=== PATIENT | female | born 1990 | race Two or more races ===

== ENCOUNTER 2024-07-17 09:20 | Day surgery (SDC) | payer MEDICAID, SELFPAY ==
[2024-07-11 08:51] VITALS: BMI 30.2
[2024-07-11 10:58] LABS: Anion Gap 7 (7-16); BUN/Creatinine Ratio 19 Ratio (12-20); Blood Urea Nitrogen 13 mg/dL (9-23); Calcium 9.3 mg/dL (8.3-10.6); Chloride 107 mMol/L (98-107); Creatinine (Component) 0.7 mg/dL (0.6-1.3); Estimated Creatinine Clearance 110.6 mL/min (>60); Glucose 94 mg/dL (74-106); Osmolality,Calculated 281 (275-295); Potassium 3.9 mMol/L (3.4-5.1); Sodium 141 mMol/L (136-145); eGFR > 60 See Note
[2024-07-11 10:59] LABS: HCG,Qualitative Serum Negative
[2024-07-11 11:04] LABS: Basophils % (Auto) 1 % (0-2.5); Eosinophils # (Auto) 0.2 Thou/mm3 (0.0-0.5); Eosinophils % (Auto) 3 % (0-10); Hematocrit 42.5 % (36.0-46.0); Hemoglobin 14.3 g/dL (12.0-16.0); Immature Granulocytes % (Auto) 0 % (0-0); Immature Granulocytes Auto 0.02 Thou/mm3 (0.00-0.00); Lymphocytes # (Auto) 1.5 Thou/mm3 (1.0-4.8); Lymphocytes % (Auto) 25 % (10-50); Mean Corpuscular HGB Conc 33.6 g/dl (31.0-37.0); Mean Corpuscular Volume 89 fL (80-100); Monocytes # (Auto) 0.4 Thou/mm3 (0.0-0.8); Monocytes % (Auto) 7 % (0-12); Neutrophils # (Auto) 3.7 Thou/mm3 (1.8-7.7); Neutrophils % (Auto) 63 % (37-80); Nucleated Red Blood Cell % 0 /100 WBC (0); Platelet Count 293 Thou/mm3 (140-440); RDW Standard Deviation 41.5 fL (36.4-46.3); Red Blood Count 4.77 Miln/mm3 (4.00-5.20); White Blood Count 5.9 Thou/mm3 (3.6-11.0)
--- NOTE | 2024-07-16 14:10 | SUR.PREOP ---
Pt notified to come in at 1015 tomorrow for surgery.
[2024-07-17] VITALS (8 sets, daily range): BP systolic 116–156; BP diastolic 73–98; PULSE 62–84; RESP 16–20; TEMP 36.6–36.9; O2SAT 98–99; BMI 30.1
--- NOTE | 2024-07-17 12:25 | SUR.PHASEI ---
1224 Patient arrived to recovery resting comfortably in [facility], drowsy and able to arouse with verbal prompting, breahting unlabored, vital signs stable, denies pain and nausea, dressing intact to right shoulder; dermabond, telfa, fluffs, medipore tape, no bleeding noted, report received from Dr. Fong and Rebecca REYES/Clari REYES
--- NOTE | 2024-07-17 12:28 | PD.SUROPNT ---
Date of Procedure 07/17/24 Pre Op Diagnosis Right shoulder soft tissue mass Post Op Diagnosis Right shoulder subcutaneous soft tissue mass Procedure Excision of large subcutaneous soft tissue mass from right shoulder Findings An approximately 10 cm subcutaneous soft tissue mass on the anterior surface of right shoulder Procedure Description Patient brought into the operating room in supine position. After administration of general endotracheal anesthesia, patient was placed in left lateral decubitus position. Right shoulder was prepped and draped in standard surgical manner. After administration of local anesthesia an approximately 10 cm elliptical incision was made and dissection was deepened into soft tissue. The underlying subcutaneous soft tissue mass was circumferentially dissected out surrounding tissue and excised. The mass was measuring to be approximately 10 cm diameter, lipomatous in nature. The wound was washed and irrigated and hemostasis achieved using electrocautery. Subcutaneous tissue closed with interrupted sutures using 2-0 Vicryl and incision was closed with 4-0 Monocryl in subcuticular fashion. Dermabond applied. Pressure dressings placed. Patient tolerated procedure well. She was placed in supine position and extubated. She was breathing spontaneously and without difficulty and was transferred to postanesthesia care in stable condition. Instruments, needles and sponge counts were reported to be correct x 2. Anesthesia GETA and local Pathology / specimen Other (Right shoulder soft tissue mass) Estimated Blood Loss 2 Condition Stable Disposition PACU Surgeon Gonzales Medeiros MD Surgical Staff Operation Date: 07/17/24 12:30 Case Staff Anesthesiologist: Trever Fong RNophthalmology surgical technician: Nati Nassar
[2024-07-17] MEDS: fentaNYL CIT INJ 50 mCg/ML AMP 2ML IV (13:13)
--- NOTE | 2024-07-17 13:35 | SUR.PHASEII ---
[id number] Patient meets discharge criteria from recovery, awake and alert, breathing unlabored, vital signs stable, dressing intact; no bleeding noted-arm sling provided for support, per patient her pain is tolerable, patient assisted with dressing into her clothing by her daughter and friend, discharge instructions given to patient and her daughter with the assistance of the telephone superintendent plant protection Diego ID#[id number], patients daughter signed discharge instructions. Patient given all her belongings prior to discharge, transported via wheelchair and left in a private vehicle.
== END 2024-07-17 13:35 | disposition home or self-care (01) ==
PROVIDERS: PCP Family Medicine; Referring Provider Surgery; Visit Provider Surgery
PROC: (CPT 23071; principal; 2024-07-17 12:15)
DX: D17.21 Benign lipomatous neoplasm of skin and subcutaneous tissue of right arm (principal)
CPT/HCPCS: 23071; 36415; 80048; 84703; 85025; A4217; A4649; J0690; J1100; J2704; J2765; J3010; J3490

== ENCOUNTER 2024-08-17 16:15 | Inpatient (IN) | payer MEDICAID, SELFPAY ==
--- NOTE | 2024-08-17 16:32 | PC.NURSE ---
pt to ct
--- NOTE | 2024-08-17 16:34 | PC.NURSE ---
Pt GCS 15. Pt stated shew woke up with headache at approx 7am. Pt began feeling numbness and tingling to her mouth at approx 9am. Pt stated that at approx 3pm, she had begun to feel numbness and tingling to right side with weakness to her right hand and leg. pt is primarily Armenian speaking only. and bedside mobile application developer was used. Stroke alert was called while in triage. Pt was placed on stretcher with 2 RNS, mill labor supervisor, and tele-neuro. CT was performed with and without IV contrast. NIH stroke eval was performed by Tele-Neuro while in CT. Pt was then escorted via Stretcher to ER Room 3. Pt was placed on a timber surveyor and updated vitals were taken. Pt c/o a moderated BROOKS at this time 6/10 and pain is described as a throbbing pain. No other complaints or problems at this time.
--- NOTE | 2024-08-17 16:39 | PD.EDNEURO ---
Neuro Symptoms Deficit-RME/HPI General Chief Complaint: Weakness Stated Complaint: Right sided weakness and chest pressure Time Seen by Provider: 08/17/24 16:22 Arrival date/time: 08/17/24 16:15 Limitations: no limitations RME / HPI RME / HPI Narrative: 34 year old female with a history of anxiety presents to the ED as a stroke alert, referred by her primary care provider. The patient reports that at approximately 3:00 PM today, she began experiencing numbness and tingling around her mouth. States she drank coffee, which she normally does not drink, and about one hour later after she developed right-sided numbness and tingling involving both the upper and lower extremities. Accompanied by subjective weakness on the right side. She denies any prior episodes of similar symptoms. She also denies associated speech difficulty, visual changes, memory issues, or headache. In addition, the patient reports intermittent sharp, stabbing chest pain described as occurring ?in my heart? over the past three days. Pain is non-radiating and has not been associated with exertion or other specific triggers. Related Data Previous Rx's ?Medication ?Instructions ?Recorded docusate sodium 100 mg capsule 100 mg PO BID #20 caps 07/17/24 (Colace) hydrocodone 5 mg-acetaminophen 325 1 tab PO Q6H PRN pain (scale score 07/17/24 mg tablet 7-10) #10 tabs ibuprofen 600 mg tablet 600 mg PO Q8H PRN pain (scale 07/17/24 score 4-6) #15 tabs Allergies Allergy/AdvReac Type Severity Reaction Status Date / Time No Known Allergies Allergy Verified 08/17/24 16:19 Review of Systems Review of Systems Narrative Review of Systems: GEN: No fever, no chills, no weight loss EYES: No discharge, no visual changes, no pain HEENT: No ear pain, no congestion, no sore throat PULM: No shortness of breath, no cough, no congestion CV: No chest pain, no dyspnea on exertion, no palpitations GI: No nausea, no vomiting, no diarrhea, no pain, no constipation : No frequency, no urgency, no dysuria MUSC/SKEL: No joint pain, no back pain SKIN: No rash NEURO: +right upper and lower extremity weakness/numbness/tingling, no headache Past Medical History Past Medical History REPRODUCTIVE: Positive Previous Pregnancies OTHER HISTORY: Positive Blood Transfusions and Measles Family History FAMILY HISTORY: Positive Family Surgery; Negative Family Psychiatric Problems, Family Respiratory Disorders, Family Cardiac Disorders, Family Gastrointestinal Problems, Family Cancer or Family Anesthesia Reaction Surgical History SURGICAL: Negative Endocrine Surgery, Ear Surgery or Abdominal Surgery Social History SMOKING STATUS: Never smoker SECOND HAND EXPOSURE: No ED Exam General Limitations: Present no limitations General appearance: Present alert and in no apparent distress Head Head exam: Present atraumatic, normocephalic and normal inspection Eye Eye exam: Present normal appearance, PERRL and EOMI ENT ENT exam: Present normal exam, normal oropharynx and mucous membranes moist Neck Neck exam: Present normal inspection, full ROM and trachea midline Chest Chest inspection: Present normal inspection and symmetric chest wall rise Respiratory Respiratory exam: Present normal lung sounds bilaterally Cardiovascular Cardiovascular exam: Present regular rate, normal rhythm and normal heart sounds Abdominal Exam Abdominal exam: Present soft and normal bowel sounds Extremities Exam Extremities exam: Present normal inspection and full ROM Back Exam Back exam: Present normal inspection and full ROM Neurological Exam Neurological exam: Present alert, oriented X3, CN II-XII intact and other (manager relocation strength on right upper extremity 4/5. ) Psychiatric Psychiatric exam: Present normal affect and normal mood Skin Skin exam: Present warm, dry, intact and normal color Course Quality Measures Suspected type of Stroke: Non Acute Last known well (date): 08/17/24 Last known well (time): 15:00 Tenecteplase given: Reason(s) TPA not given: Stroke severity too mild (non-disabling) not given stroke Orders Category Date Time Status Bedside Blood Glucose NOW Care 08/17/24 16:40 Completed COVID-19 Screening Questionnaire NOW Care 08/17/24 17:[address] Screening NOW Care 08/17/24 16:49 Completed Garbage Truck Driver NOW Care 08/17/24 16:40 Active Continuous Pulse Oximetry NOW Care 08/17/24 16:40 Completed Decision to Admit X1 Care 08/17/24 17:58 Completed EKG (ED ONLY) *Do not use* NOW Care 08/17/24 16:40 Completed In and Out Catheter NEEDED Care 08/17/24 16:40 Active Insert IV NOW Care 08/17/24 16:40 Active NIH Stroke Scale now Care 08/17/24 16:40 Active NPO NOW Care 08/17/24 16:40 Active Neuro Check Q15MIN Care 08/17/24 16:40 Active Nurse Swallow Screen x1 Care 08/17/24 16:40 Active Consult to Neurology / Tele-Neurology Routine Cons 08/17/24 16:[address] angio stroke protocol Stat Exams 08/17/24 16:[address] stroke protocol Stat Exams 08/17/24 16:40 Completed EKG (ED Only) Stat Exams 08/17/24 16:40 Draft Alcohol, Blood Medical Stat Lab 08/17/24 16:32 Completed CBC Stat Lab 08/17/24 16:32 Completed Comprehensive Metabolic Panel Stat Lab 08/17/24 16:32 Completed Drug Screen,Urine Stat Lab 08/17/24 17:42 Completed Magnesium Stat Lab 08/17/24 16:32 Completed Partial Thromboplastin Time Stat Lab 08/17/24 16:32 Completed Prothrombin Time with INR Stat Lab 08/17/24 16:32 Completed Troponin I Stat Lab 08/17/24 16:32 Completed Urinalysis Stat Lab 08/17/24 17:42 Completed Urine Culture Stat Lab 08/17/24 17:42 Received Aspirin [Ecotrin] Med 08/17/24 17:58 Discontinued 81 mg PO X1 ONE Clopidogrel [Plavix] Med 08/17/24 17:58 Discontinued 300 mg PO X1 ONE Ondansetron Inj [Zofran Inj] Med 08/17/24 16:39 Active 4 mg IV Q4HR PRN Sodium Chloride 0.9% 1000 ml [Ns] 1,000 ml Med 08/17/24 16:45 Active IV Q10H Vital Signs Vital signs: Vital Signs Temperature 98.4 F 08/17/24 17:11 Pulse Rate 78 08/17/24 17:11 Respiratory Rate 14 08/17/24 17:11 Oxygen Delivery Method Room Air 08/17/24 17:11 Neuro Symptoms / Deficit MDM Narrative MDM Narrative:: Ryann Daily am scribing for and in the presence of Dr. Rosario. 1624: I evaluated patient in old triage 1627: Stroke alert activated Patient data External records reviewed:: [facility] previous records (I reviewed ED Visit on 04/01/2019 ) Clinical information provided by:: patient Social determinants that could affect healthcare access:: mental health Patient has the following chronic illnesses:: Anxiety How is presenting disease/condition affected by chronic disease/condition?: exacerbated by Evaluation data The following diagnostics were reviewed and interpreted by me:: lab results, radiology exam(s) and EKG tracing(s) (EKG @ 17:22. Sinus rhythm, rate 69, no STEMI. ) Lab and/or radiology exams considered but not ordered:: None Interpretation Summary: Ordering Physician: Messi Rosario MD Date of Service: 08/17/24 Procedure(s): CT stroke protocol Accession Number(s): [id number] cc: Messi Rosario MD; Kody Miranda MD~ Examination: CT brain head without contrast. 2-D sagittal coronal reconstructions Date and time of exam:August 17, 2024 1636 hours Comparison July 24, 2014 INDICATION: Stroke alert, onset chest pain and right-sided body weakness beginning 9:00 AM this morning CTDI: vol (mGy):46.9 DLP: (mGycm):954 Technique: Multiple CT axial sections of the brain have been obtained, 5 mm slice thickness. Contrast has not been administered. 2-D sagittal, coronal reconstructions have been obtained Low dose protocols were performed. One or more of the following dose reduction techniques were used; automated exposure control, adjustment of the mA and/or KV according to patient size, use of iterative reconstruction technique. Findings: No significant ventricular enlargement. Intra-axial or extra-axial hemorrhage density is not seen. No mass effect or midline shift Basal cisterns are not remarkable. Fourth ventricle is midline. Cranial vault intact. Impression: Negative for acute hemorrhage, mass effect or midline shift Dictated By: Kody Miranda MD Signed By: <Electronically signed by Kody Miranda MD in OV> 08/17/24 1647 Ordering Physician: Messi Rosario MD Date of Service: 08/17/24 Procedure(s): CT angio stroke protocol Accession Number(s): [id number] cc: Messi Rosario MD; Kody Miranda MD~ Examination: CTA carotids with intravenous contrast CTA brain, head with intravenous contrast. 2-D sagittal, coronal reconstructions. 3-D reconstructions. Exam date and time: August 17, 2024 1650 hours INDICATIONS: Stroke alert, onset right-sided body weakness and chest pain beginning 9:00 AM this morning CTDI: vol (mGy) 32 DLP: (mGycm) 458 Technique: Multiple CTA axial brain, head carotid images post intravenous contrast injection 75 cc, [id number]. 2-D sagittal, coronal reconstructions. 3-D reconstructions, 3-D post processing including vascular maximum intensity projection images. Low dose protocols were performed. One or more of the following dose reduction techniques were used; automated exposure control, adjustment of the mA and/or KV according to patient size, use of iterative reconstruction technique. Findings: No common carotid carotid bifurcation or internal carotid artery stenoses Mildly dominant left vertebral artery with no critical stenoses Intracranial vertebral arteries basilar artery and posterior cerebral branches fill with no large vessel occlusions Petrous juxtasellar portions internal carotid arteries, M1 segment spell cerebral arteries middle cerebral artery trifurcation vessels as well as anterior cerebral vessels demonstrate no large vessel occlusions IMPRESSION: No significant neck arterial stenoses No cerebral special arterial occlusions or thrombus Brain MRI MRA without contrast follow up, stroke protocol would best assess for demyelinating disease, acute ischemic change Dictated By: Kody Miranda MD Signed By: <Electronically signed by Kody Miranda MD in OV> 08/17/24 1526 Medications / Prescriptions Medications or Prescriptions considered but not ordered:: None Medication administrations:: Medication Administration History Acetaminophen (Acetaminophen 325 Mg Tablet) 650 mg PO Q6H PRN PRN Reason: Fever >101.5 Stop: 09/16/24 18:43 Acetaminophen (Acetaminophen 325 Mg Tablet) 650 mg PO Q6H PRN PRN Reason: PAIN SCALE 1-3 (mild Stop: 09/16/24 18:43 Aspirin (Aspirin Ec 81 Mg Tabec) 81 mg PO QDAY ADAM Stop: 09/17/24 08:59 Clopidogrel Bisulfate (Clopidogrel Bisulfate 75 Mg Tablet) 75 mg PO QDAY [facility] Stop: 09/17/24 08:59 Heparin Sodium (Porcine) (Heparin Sod Inj 5000 Unit/Ml Vial) 5,000 unit SC Q8HR [facility] Stop: 08/31/24 21:59 Last Admin: 08/18/24 05:49 Dose: 5,000 unit Documented By: CHERYL Co-signed By: CHARLIE Admin: 08/18/24 05:22 Dose: Not Given Documented By: CHERYL Non-Admin Reason: Patient Refused Sodium Chloride (Ns) 1,000 mls @ 100 mls/hr IV Q10H [facility] Stop: 09/16/24 16:44 Last Admin: 08/18/24 03:57 Dose: 100 mls/hr Documented By: Infusion: 08/18/24 03:52 Dose: Infused Documented By: Admin: 08/17/24 17:50 Dose: 100 mls/hr Documented By: CHERYL(2) Ondansetron HCl (Ondansetron Inj 2 Mg/Ml Inj 2 Ml) 4 mg IV Q4HR PRN PRN Reason: NAUSEA OR VOMITING Stop: 09/16/24 16:38 Last Admin: 08/17/24 17:49 Dose: 4 mg Documented By: CHERYL(2) Discontinued Medications Aspirin (Aspirin Ec 81 Mg Tabec) 81 mg PO X1 ONE Stop: 08/17/24 17:59 Last Admin: 08/17/24 18:09 Dose: 81 mg Documented By: CHERYL(2) Clopidogrel Bisulfate (Clopidogrel Bisulfate 75 Mg Tablet) 300 mg PO X1 ONE Stop: 08/17/24 17:59 Last Admin: 08/17/24 18:09 Dose: 300 mg Documented By: CHERYL(2) See above Consultations Consultation(s) initiated? (list below): Yes Consultation #1 (Physician, Specialty, Details): I spoke with teleneurologist. They recommend admission, Plavix, and Aspirin. Time: 17:25 Consultation #2 (Physician, Specialty, Details): I spoke with hospitalist Dr. Henson regarding admission. Discussed patients PMHx, HPI, ED course, exam findings, labs, and radiology results. The hospitalist agree to accept the patient for admission. Diagnosis Neuro Differential Diagnosis: subarachnoid hemorrhage, cerebrovascular accident, multiple sclerosis, transient cerebral ischemia and other (anxiety ) Most likely diagnosis given after review of the tests above:: CVA Paresthesia Admission Indicated Admission indicated?: indicated Admission Request Was there a request for admission?: Yes Admission Attestation Admission request attestation: Discussed case with [] from Hospitalist service regarding admission. Discussed patients ED course, exam findings, labs, and radiology results. The Hospitalist [agrees,declines] to accept the patient for admission. Disposition Plan Disposition Plan: Admit Discharge Plan Plan Patient Disposition: Admit Acute Care w/in Hospital Problem List Clinical Impression: Acute CVA (cerebrovascular accident), Paresthesia
--- NOTE | 2024-08-17 16:40 | EKG_ITS ---
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
[2024-08-17 17:11] VITALS: PULSE 73; PULSE 78; RESP 14; TEMP 36.9
[2024-08-17 17:16] LABS: Basophils # (Auto) 0.1 Thou/mm3 (0.0-0.2); Basophils % (Auto) 1 % (0-2.5); Eosinophils % (Auto) 0 % (0-10); Hemoglobin 14.2 g/dL (12.0-16.0); Immature Granulocytes % (Auto) 0 % (0-0); Immature Granulocytes Auto 0.04 Thou/mm3 (0.00-0.00); Lymphocytes # (Auto) 1.9 Thou/mm3 (1.0-4.8); Lymphocytes % (Auto) 20 % (10-50); Mean Corpuscular HGB Conc 34.6 g/dl (31.0-37.0); Mean Corpuscular Hemoglobin 30.6 pg (25.0-35.0); Mean Corpuscular Volume 88 fL (80-100); Monocytes # (Auto) 0.7 Thou/mm3 (0.0-0.8); Monocytes % (Auto) 7 % (0-12); Neutrophils % (Auto) 72 % (37-80); Nucleated Red Blood Cell % 0 /100 WBC (0); Platelet Count 287 Thou/mm3 (140-440); RDW Standard Deviation 40.9 fL (36.4-46.3); Red Blood Count 4.64 Miln/mm3 (4.00-5.20); White Blood Count 9.7 Thou/mm3 (3.6-11.0)
[2024-08-17 17:31] VITALS: PULSE 70; RESP 15; O2SAT 98
--- NOTE | 2024-08-17 17:33 | ESCONSULT_ITS ---
History of Present Illness Consult Narrative cc:: cc: Meds Home Medications and Allergies Allergies Allergy/AdvReac Type Severity Reaction Status Date / Time No Known Allergies Allergy Verified 08/17/24 16:19 Exam - Neurology Vital Signs Temp Pulse Resp O2 Del Method 98.4 F 73 14 Room Air 08/17/24 17:11 08/17/24 17:11 08/17/24 17:11 08/17/24 17:11 Results Labs 08/17/24 16:32 08/17/24 16:32 Labs: Short CBC 08/17/24 Range/Units 16:32 WBC 9.7 (3.6-11.0) Thou/mm3 Hgb 14.2 (12.0-16.0) g/dL Hct 41.0 (36.0-46.0) % Plt Count 287 (140-440) Thou/mm3 Assessment & Plan Additional Assessment & Plan Additional Plan: [facility] Consult [facility] Patient Name:???alyx zacarias Date of :???1990 Identification Number:??? Date of Service:???08/17/2024 16:30:44 Diagnosis:?G44.201 - Headache (if no chronic) ?R20.8 - Other disturbances of skin sensation Impression: ?PT is a 34 yo F with no significant vascular risk factors who presented to the ED with headache as well as right sided weakness and numbness LKW at 9 AM this morning. NIHSSS was 2 for finished sensation of her right arm and leg compared to her left and some slight ataxia of her right leg on the heel to bedoya task. PT was outside the window for iv-thrombolytics. CTA head and neck showed no obvious large vessel occlusion, but will follow-up with the final results. ? ?Differential includes stroke vs complicated migraine. ? ?Recommend stroke work-up with a routine MRI brain without contrast, TTE (with bubble study if available), telemetry, lipid panel, hemoglobin AIC. ? ?Would start dual antiplatelet therapy with Plavix 300 mg and ASA 81 mg x 1 once the patient has passed a dysphagia screen or is determined safe for PO by a swallow evaluation. Would continue DAPT with ASA 81 mg daily and Plavix 75 mg daily x 21 days then switch to monotherapy ? ?Can allow permissive HTN up to 220/120 x 24 hours unless any evidence of any end-organ damage. ? Our recommendations are outlined below. Recommendations: ? Stroke/Telemetry Floor ? Neuro Checks (Q2) ? Bedside Swallow Eval ? DVT Prophylaxis ? IV Fluids, Normal Saline ? Head of Bed 30 Degrees ? Euglycemia and Avoid Hyperthermia (PRN Acetaminophen) ? Bolus with Clopidogrel 300 mg bolus x1 and initiate dual antiplatelet therapy with Aspirin 81 mg daily and Clopidogrel 75 mg daily ? Antihypertensives PRN if Blood pressure is greater than 220/120 or there is a concern for End organ damage/contraindications for permissive HTN. If blood pressure is greater than 220/120 give labetalol PO or IV or Vasotec IV with a goal of 15% reduction in BP during the first 24 hours. ?Routine MRI brain without contrast ?TTE (with bubble study if available) ?Lipid panel ?Hemoglobin AIC ?Would start dual antiplatelet therapy with Plavix 300 mg and ASA 81 mg x 1 once the patient has passed a dysphagia screen or is determined safe for PO by a swallow evaluation. Would continue DAPT with ASA 81 mg daily and Plavix 75 mg daily x 21 days then switch to monotherapy Sign Out: ? Discussed with Emergency Department Provider Advanced Imaging: CTA Head and Neck Completed. LVO:No Patient is not a candidate for ANGELIC Metrics: Last Known Well: 08/17/2024 09:00:00 Dispatch Time: 08/17/2024 16:30:44 Arrival Time: 08/17/2024 16:15:00 Initial Response Time: 08/17/2024 16:33:22Symptoms: Right sided weakness and numbness. . Initial patient interaction: 08/17/2024 16:38:16 NIHSS Assessment Completed: 08/17/2024 16:46:02Patient is not a candidate for Thrombolytic. Thrombolytic Medical Decision: 08/17/2024 16:47:17Patient was not deemed candidate for Thrombolytic because of following reasons: LKW outside 4.[address] Head: I personally reviewed all the CT images that were available to me and it showed: no acute ischemic changes, no ICH Primary Provider Notified of Diagnostic Impression and Management Plan on: 08/17/2024 17:27:06 History of Present Illness:Patient is a 34 year old Female. Patient was brought by private transportation with symptoms of Right sided weakness and numbness. . PT is a 34 yo F with no significant vascular risk factors who presented to the ED with headache and right sided weakness and numbness. Pt reports that she has been having chest pain x 3 days, but otherwise went to bed in her USOH at 10 PM. She woke up at 7 AM woke up with headache. At 9 AM, noticed tingling on the right side of her mouth and tongue. At 3 PM< her symptoms progressed so that she had numbness and tingling of her right arm and also noted that her right arm and leg felt heavy. She still reports a frontal pressure headrace and nausea. NO changes in speech, no visual changes. She has no history of migraines. Past Medical History: ?There is no history of Hypertension ?There is no history of Diabetes Mellitus ?There is no history of Hyperlipidemia ?There is no history of Atrial Fibrillation ?There is no history of Coronary Artery Disease ?There is no history of Stroke ?There is no history of Migraine Headaches Medications: No Anticoagulant use? No Antiplatelet use Reviewed EMR for current medications Allergies:? NKDA Social History: Smoking: No Family History: There Is Family History Of:NO family of CVA There is no family history of premature cerebrovascular disease pertinent to this consultation ROS : 14 Points Review of Systems was performed and was negative except mentioned in HPI. Past Surgical History: There Is No Surgical History Contributory To Today?s Visit Examination: BP(128/86),?Pulse(73), 1A: Level of Consciousness - Alert; keenly responsive?+ 0 1B: Ask Month and Age - Both Questions Right?+ 0 1C: Blink Eyes & Squeeze Hands - Performs Both Tasks?+ 0 2: Test Horizontal Extraocular Movements - Normal?+ 0 3: Test Visual Rhodes - No Visual Loss?+ 0 4: Test Facial Palsy (Use Grimace if Obtunded) - Normal symmetry?+ 0 5A: Test Left Arm Motor Drift - No Drift for 10 Seconds?+ 0 5B: Test Right Arm Motor Drift - No Drift for 10 Seconds?+ 0 6A: Test Left Leg Motor Drift - No Drift for 5 Seconds?+ 0 6B: Test Right Leg Motor Drift - No Drift for 5 Seconds?+ 0 7: Test Limb Ataxia (FNF/Heel-Bedoya) - Ataxia in 1 Limb?+ 1 8: Test Sensation - Mild-Moderate Loss: Less Sharp/More Dull?+ 1 9: Test Language/Aphasia - Normal; No aphasia?+ 0 10: Test Dysarthria - Normal?+ 0 11: Test Extinction/Inattention - No abnormality?+ 0 NIHSS Score:?2 NIHSS Free Text :?NIHSSS was 2 for finished sensation of her right arm and leg compared to her left and some slight ataxia of her right leg on the heel to bedoya task. FNF was slightly slower on the right but intact. 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 She had a steady gait and was able to walk without any assistance. Pre-Morbid Modified [place] Scale:0 Points = No symptoms at all Spoke with :?Messi Rosario This consult was conducted in real time using interactive audio and video technology. Patient was informed of the technology being used for this visit and agreed to proceed. Patient located in hospital and provider located at home/office setting. Patient is being evaluated for possible acute neurologic impairment and high probability of imminent or life-threatening deterioration. I spent total of 42 minutes providing care to this patient, including time for face to face visit via telemedicine, review of medical records, imaging studies and discussion of findings with providers, the patient and/or family. Dr Venita Cummings [facility] For Inpatient follow-up with [facility] physician please call [facility] at . As we are not an outpatient service for any post hospital discharge needs please contact the hospital for assistance. If you have any questions for the [facility] physicians or need to reconsult for clinical or diagnostic changes please contact us via [facility] at .
[2024-08-17 17:39] LABS: INR 1.1 (0.9-1.3); Partial Thromboplastin Time 25.6 Seconds (22.0-36.0); Prothrombin Time 11.7 Seconds (9.0-12.2)
--- NOTE | 2024-08-17 17:40 | PD.NEUROCONS ---
History of Present Illness Consult Narrative cc:: cc: Meds Home Medications and Allergies Allergies Allergy/AdvReac Type Severity Reaction Status Date / Time No Known Allergies Allergy Verified 08/17/24 16:19 Exam - Neurology Vital Signs Temp Pulse Resp O2 Del Method 98.4 F 73 14 Room Air 08/17/24 17:11 08/17/24 17:11 08/17/24 17:11 08/17/24 17:11 Results Labs 08/17/24 16:32 08/17/24 16:32 Labs: Short CBC 08/17/24 Range/Units 16:32 WBC 9.7 (3.6-11.0) Thou/mm3 Hgb 14.2 (12.0-16.0) g/dL Hct 41.0 (36.0-46.0) % Plt Count 287 (140-440) Thou/mm3 Assessment & Plan Additional Assessment & Plan Additional Plan: [facility] Tele[facility] Consult [facility] Patient Name:???alyx zacarias Date of :???1990 Identification Number:??? Date of Service:???08/17/2024 16:30:44 Diagnosis:?G44.201 - Headache (if no chronic) ?R20.8 - Other disturbances of skin sensation Impression: ?PT is a 34 yo F with no significant vascular risk factors who presented to the ED with headache as well as right sided weakness and numbness LKW at 9 AM this morning. NIHSSS was 2 for finished sensation of her right arm and leg compared to her left and some slight ataxia of her right leg on the heel to bedoya task. PT was outside the window for iv-thrombolytics. CTA head and neck showed no obvious large vessel occlusion, but will follow-up with the final results. ? ?Differential includes stroke vs complicated migraine. ? ?Recommend stroke work-up with a routine MRI brain without contrast, TTE (with bubble study if available), telemetry, lipid panel, hemoglobin AIC. ? ?Would start dual antiplatelet therapy with Plavix 300 mg and ASA 81 mg x 1 once the patient has passed a dysphagia screen or is determined safe for PO by a swallow evaluation. Would continue DAPT with ASA 81 mg daily and Plavix 75 mg daily for now. IF MRI brain shows no acute stroke, antiplatelet therapy can be stopped. ? ?Can allow permissive HTN up to 220/120 x 24 hours unless any evidence of any end-organ damage. ? Our recommendations are outlined below. Recommendations: ? Stroke/Telemetry Floor ? Neuro Checks (Q2) ? Bedside Swallow Eval ? DVT Prophylaxis ? IV Fluids, Normal Saline ? Head of Bed 30 Degrees ? Euglycemia and Avoid Hyperthermia (PRN Acetaminophen) ? Bolus with Clopidogrel 300 mg bolus x1 and initiate dual antiplatelet therapy with Aspirin 81 mg daily and Clopidogrel 75 mg daily ? Antihypertensives PRN if Blood pressure is greater than 220/120 or there is a concern for End organ damage/contraindications for permissive HTN. If blood pressure is greater than 220/120 give labetalol PO or IV or Vasotec IV with a goal of 15% reduction in BP during the first 24 hours. ?Routine MRI brain without contrast ?TTE (with bubble study if available) ?Lipid panel ?Hemoglobin AIC ?Would start dual antiplatelet therapy with Plavix 300 mg and ASA 81 mg x 1 once the patient has passed a dysphagia screen or is determined safe for PO by a swallow evaluation. IF MRI brain shows no acute stroke, antiplatelet therapy can be stopped. Sign Out: ? Discussed with Emergency Department Provider Advanced Imaging: CTA Head and Neck Completed. LVO:No Patient is not a candidate for ANGELIC Metrics: Last Known Well: 08/17/2024 09:00:00 Dispatch Time: 08/17/2024 16:30:44 Arrival Time: 08/17/2024 16:15:00 Initial Response Time: 08/17/2024 16:33:22Symptoms: Right sided weakness and numbness. . Initial patient interaction: 08/17/2024 16:38:16 NIHSS Assessment Completed: 08/17/2024 16:46:02Patient is not a candidate for Thrombolytic. Thrombolytic Medical Decision: 08/17/2024 16:47:17Patient was not deemed candidate for Thrombolytic because of following reasons: LKW outside 4.[address] Head: I personally reviewed all the CT images that were available to me and it showed: no acute ischemic changes, no ICH Primary Provider Notified of Diagnostic Impression and Management Plan on: 08/17/2024 17:27:06 History of Present Illness:Patient is a 34 year old Female. Patient was brought by private transportation with symptoms of Right sided weakness and numbness. . PT is a 34 yo F with no significant vascular risk factors who presented to the ED with headache and right sided weakness and numbness. Pt reports that she has been having chest pain x 3 days, but otherwise went to bed in her USOH at 10 PM. She woke up at 7 AM woke up with headache. At 9 AM, noticed tingling on the right side of her mouth and tongue. At 3 PM< her symptoms progressed so that she had numbness and tingling of her right arm and also noted that her right arm and leg felt heavy. She still reports a frontal pressure headrace and nausea. NO changes in speech, no visual changes. She has no history of migraines. Past Medical History: ?There is no history of Hypertension ?There is no history of Diabetes Mellitus ?There is no history of Hyperlipidemia ?There is no history of Atrial Fibrillation ?There is no history of Coronary Artery Disease ?There is no history of Stroke ?There is no history of Migraine Headaches Medications: No Anticoagulant use? No Antiplatelet use Reviewed EMR for current medications Allergies:? NKDA Social History: Smoking: No Family History: There Is Family History Of:NO family of CVA There is no family history of premature cerebrovascular disease pertinent to this consultation ROS : 14 Points Review of Systems was performed and was negative except mentioned in HPI. Past Surgical History: There Is No Surgical History Contributory To Today?s Visit Examination: BP(128/86),?Pulse(73), 1A: Level of Consciousness - Alert; keenly responsive?+ 0 1B: Ask Month and Age - Both Questions Right?+ 0 1C: Blink Eyes & Squeeze Hands - Performs Both Tasks?+ 0 2: Test Horizontal Extraocular Movements - Normal?+ 0 3: Test Visual Rhodes - No Visual Loss?+ 0 4: Test Facial Palsy (Use Grimace if Obtunded) - Normal symmetry?+ 0 5A: Test Left Arm Motor Drift - No Drift for 10 Seconds?+ 0 5B: Test Right Arm Motor Drift - No Drift for 10 Seconds?+ 0 6A: Test Left Leg Motor Drift - No Drift for 5 Seconds?+ 0 6B: Test Right Leg Motor Drift - No Drift for 5 Seconds?+ 0 7: Test Limb Ataxia (FNF/Heel-Bedoya) - Ataxia in 1 Limb?+ 1 8: Test Sensation - Mild-Moderate Loss: Less Sharp/More Dull?+ 1 9: Test Language/Aphasia - Normal; No aphasia?+ 0 10: Test Dysarthria - Normal?+ 0 11: Test Extinction/Inattention - No abnormality?+ 0 NIHSS Score:?2 NIHSS Free Text :?NIHSSS was 2 for finished sensation of her right arm and leg compared to her left and some slight ataxia of her right leg on the heel to bedoya task. FNF was slightly slower on the right but intact. 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 She had a steady gait and was able to walk without any assistance. Pre-Morbid Modified [place] Scale:0 Points = No symptoms at all Spoke with :?Messi Rosario This consult was conducted in real time using interactive audio and video technology. Patient was informed of the technology being used for this visit and agreed to proceed. Patient located in hospital and provider located at home/office setting. Patient is being evaluated for possible acute neurologic impairment and high probability of imminent or life-threatening deterioration. I spent total of 42 minutes providing care to this patient, including time for face to face visit via telemedicine, review of medical records, imaging studies and discussion of findings with providers, the patient and/or family. Dr Venita Cummings [facility] For Inpatient follow-up with [facility] physician please call [facility] at . As we are not an outpatient service for any post hospital discharge needs please contact the hospital for assistance. If you have any questions for the [facility] physicians or need to reconsult for clinical or diagnostic changes please contact us via [facility] at .
[2024-08-17] MEDS: ONDANSETRON INJ 2 MG/ML INJ 2 ML 4 MG IV (17:49)
[2024-08-17] MEDS: SODIUM CHLORIDE 0.9% 1000 ML 1,000 ML 100 ML IV (17:50)
[2024-08-17 17:51] LABS: Collection Type, Urine Catheter; RBC,Urine 0 /hpf (0-3)
[2024-08-17 17:55] LABS: Alanine Aminotransferase 20 U/L (10-49); Albumin, Serum 4.7 gm/dL (3.5-5.0); Albumin/Globulin Ratio 1.5 (1.2-2.2); Alcohol, Blood Medical < 3.0 mg/dL (0-10.0); Alkaline Phosphatase 98 U/L (46-116); Anion Gap 10 (7-16); Aspartate Amino Transferase 18 U/L (0-34); BUN/Creatinine Ratio 11 Ratio (12-20); Bilirubin,Total 0.9 mg/dL (0.3-1.2); Blood Urea Nitrogen 9 mg/dL (9-23); Calcium 9.2 mg/dL (8.3-10.6); Calcium (Corrected) 9.2 mg/dL (8.5-10.1); Carbon Dioxide 25.9 mMol/L (20.0-31.0); Chloride 104 mMol/L (98-107); Creatinine (Component) 0.8 mg/dL (0.6-1.3); Globulin 3.1 gm/dL (2.3-3.5); Glucose 109 mg/dL (74-106); Magnesium 1.9 mg/dL (1.6-2.6); Osmolality,Calculated 279 (275-295); Potassium 3.6 mMol/L (3.4-5.1); Sodium 140 mMol/L (136-145); Total Protein 7.8 gm/dL (5.7-8.2); Troponin I < 0.020 ng/mL (0.0-0.045); eGFR > 60 See Note
[2024-08-17 18:02] LABS: Amphetamine/Methamp Scrn,U Negative (Negative); Barbiturate Screen,Urine Negative (Negative); Benzodiazepines Screen,Urine Negative (Negative); Benzoylecgonine Screen, Ur Negative (Negative); Fentanyl Screen,Urine Negative (Negative); Opiate Screen,Urine Negative (Negative); THC Screen,Urine Negative (Negative)
[2024-08-17 18:05] LABS: Bacteria,Urine Rare; Bilirubin,Urine Negative (Negative); Blood,Urine Negative (Negative); Clarity,Urine Clear (Clear/Hazy); Color,Urine Lt-Yellow (Lt Yel-Yel); Glucose, Urine Negative (Negative); Ketones,Urine Negative (Negative); Leukocyte Esterase,Urine Positive (Negative); Nitrite,Urine Negative (Negative); Protein,Urine Negative (Neg - Trace); Specific Gravity,Urine 1.046 (1.001-1.035); Squamous Epithelial Cell,Urine 2 /hpf (0-5); Urobilinogen,Urine Negative mg/dL (0.0-1.0); WBC,Urine 11 /hpf (0-5)
[2024-08-17] MEDS: ASPIRIN EC 81 MG TABEC PO (18:09)
[2024-08-17] MEDS: CLOPIDOGREL BISULFATE 75 MG TABLET 300 MG PO (18:09)
[2024-08-17 18:24] VITALS: BP 131/85; PULSE 70; RESP 14; TEMP 36.6; O2SAT 98
--- NOTE | 2024-08-17 18:50 | ESHP_ITS ---
Documentation for date of: 08/17/24 HPI - Hospitalist History of Present Illness History of present illness: Patient is a 34 years old female without known past medical history who presented to the ED with complaint of right-sided weakness and numbness along with headache since 9 AM this morning. She was able to ambulate and move her limbs even after the symptoms at home. She also complains of numbness and tingling around her lips. She is also having pulsating discomfort on her chest, denies any radiation, palpitation, pain. Denies any nausea, vomiting, shortness of breath. In the ED, stroke alert was called, patient underwent head CT which was negative for acute hemorrhage, mass effect or midline shift, CTA head/neck was done, did not show any significant neck arterial stenosis or cerebral arterial occlusion or thrombus. EKG was obtained, which showed sinus rhythm without ST changes. Vital signs were stable. Lab results were nonconcerning as well including negative troponin x 2. Urinalysis showed positive leukocyte esterase and 11 WBCs. Patient denied any urinary symptoms. We will admit the patient for stroke workup as recommended by neurology. Past medical history/past surgical history: None Social history: Does not smoke cigarettes, does not consume alcohol or illicit drugs Review of Systems Review of Systems Systems Reviewed: All systems reviewed, normal except as documented Meds Home Medications and Allergies Allergies Allergy/AdvReac Type Severity Reaction Status Date / Time No Known Allergies Allergy Verified 08/17/24 16:19 Exam Vital Signs Temp Pulse Resp BP Pulse Ox O2 Del Method 97.9 F 70 14 131/85 H 98 Room Air 08/17/24 18:24 08/17/24 18:24 08/17/24 18:24 08/17/24 18:24 08/17/24 18:24 08/17/24 18:24 Narrative General: Alert and oriented, comfortable, able to answer questions and follow commands appropriately HEENT: EOMI, PERRLA, no pallor or icterus Cardio: RRR, S1 and S2 heard without murmurs Respiratory: Clear to auscultate bilaterally, no wheeze or crackles MSK: No edema Neuro:Alert and Oriented x 4, moving all her extremities, slight decrease in strength on right upper and lower limb compared to left, decreased sensation in right side compared to left Psych: Appropriate mood and behaviour Results - Hospitalist Labs Diagrams: 08/17/24 16:32 08/17/24 16:32 Labs: Short CBC 08/17/24 Range/Units 16:32 WBC 9.7 (3.6-11.0) Thou/mm3 Hgb 14.2 (12.0-16.0) g/dL Hct 41.0 (36.0-46.0) % Plt Count 287 (140-440) Thou/mm3 BMP 08/17/24 16:32 Sodium 140 Potassium 3.6 Chloride 104 Carbon Dioxide 25.9 BUN 9 Creatinine 0.8 Glucose 109 H Calcium 9.2 Cardiac Enzymes 08/17/24 Range/Units 16:32 Troponin I < 0.020 (0.0-0.045) ng/mL Liver Function 08/17/24 Range/Units 16:32 Total Bilirubin 0.9 (0.3-1.2) mg/dL AST 18 (0-34) U/L ALT 20 (10-49) U/L Alkaline Phosphatase 98 (46-116) U/L Albumin 4.7 (3.5-5.0) gm/dL Urine 08/17/24 Range/Units 17:42 Urine Color Lt-Yellow (Lt Yel-Yel) Urine Clarity Clear (Clear/Hazy) Urine pH 7.0 (5.0-7.0) Ur Specific [place] 1.046 H (1.001-1.035) Urine Protein Negative (Neg - Trace) Urine Glucose (UA) Negative (Negative) Assessment & Plan -Hospitalist Additional Assessment Patient is a 34 years old female without known past medical history who presented to the ED with complaint of right-sided numbness, weakness and headache. Stroke alert was called in the ED. Patient admitted for stroke workup #CVA workup Patient complained of weakness and numbness on right side, she also complained of numbness and tingling around her lips tPA was not given, last well-known 9 AM, NIHSS score of [address] negative for acute hemorrhage, mass effect or midline shift CTA head/neck negative for significant neck arterial stenosis or cerebral arterial arteries and no thrombus Started patient on aspirin 81 and Plavix 75 daily Ordered brain MRI, echocardiography Ordered lipid panel, TSH, hemoglobin A1c Frequent neurochecks Also ordered in-house neurology consult DVT prophylaxis: Heparin SC Code: Full code Diet: Cardiac diet Disposition: Telemetry for management of CVA workup Esther Henson MD Quality Measures Quality Measures stroke Suspected type of Stroke: Non Acute Last known well (date): 08/17/24 Last known well (time): 15:00 Tenecteplase given: Reason(s) Tenecteplase not given: Stroke severity too mild (non-disabling) not given Rehab services: PT evaluation ordered VTE Prophylaxis: pharmaceutical Antithrombotic by day 2:: ordered Statin ordered: not ordered Anticoagulation ordered for A-fib or flutter (current or hx): not indicated
[2024-08-17 19:34] LABS: Troponin I < 0.020 ng/mL (0.0-0.045)
[2024-08-17 20:12] VITALS: BP 127/86; PULSE 73; RESP 17; TEMP 36.8; O2SAT 98
[2024-08-17 23:33] VITALS: BP 110/70; PULSE 67; RESP 17; TEMP 36.6; O2SAT 97
[2024-08-18] VITALS (9 sets, daily range): BP systolic 91–132; BP diastolic 54–91; PULSE 63–78; RESP 13–22; TEMP 36.1–37.1; O2SAT 95–97
--- NOTE | 2024-08-18 | XR_ITS ---
Examination: MRI brain without intravenous contrast. Date and time of exam: August 18, 2024 0706 hours INDICATIONS: CT stroke alert August 17, 2024, onset chest pain right-sided body weakness beginning 9:00 AM yesterday Technique: Multiple axial and sagittal images of the brain obtained. Siemens high-resolution 1.5 Orly short bore scanners utilized. Sagittal sections, T1-weighted, TR 500, TE 14, are performed. Axial sections proton-density and T2-weighted have been obtained. Inversion recovery axial images, TR 9, 260, TE 111, TI 2500. Diffusion weighted images, axial sections, TR 4800, TE 128, B value 1000 Axial sections, ADC map, TR 4800, TE 128 Findings: Enlargement of the sella turcica is not present. The optic chiasm and infundibular are not remarkable. Prepontine and interpeduncular cisterns are not enlarged. There is no localized enlargement of the medulla or ivet. Fourth ventricle and cerebellar tonsils appear normal in position. No subacute area of hemorrhage density is seen. Mass in the cerebellopontine angle region is not evident. Globes symmetrical. Orbital musculature including medial lateral rectus muscles do not exhibit abnormality. Diffusion-weighted images demonstrate no focus of restricted diffusion. Increased white matter signal not seen Mass effect upon the ventricular system is not identified. Impression: Negative for acute hemorrhage mass effect or midline shift No acute infarct No MR findings diagnostic for demyelinating disease
[2024-08-18] MEDS: SODIUM CHLORIDE 0.9% 1000 ML 1,000 ML 100 ML IV ×2 (03:57→16:46)
[2024-08-18 05:35] LABS: Basophils % (Auto) 0 % (0-2.5); Eosinophils # (Auto) 0.2 Thou/mm3 (0.0-0.5); Eosinophils % (Auto) 2 % (0-10); Hematocrit 37.9 % (36.0-46.0); Hemoglobin 13.1 g/dL (12.0-16.0); Immature Granulocytes % (Auto) 0 % (0-0); Immature Granulocytes Auto 0.02 Thou/mm3 (0.00-0.00); Lymphocytes # (Auto) 2.8 Thou/mm3 (1.0-4.8); Lymphocytes % (Auto) 32 % (10-50); Mean Corpuscular HGB Conc 34.6 g/dl (31.0-37.0); Mean Corpuscular Volume 90 fL (80-100); Monocytes # (Auto) 0.8 Thou/mm3 (0.0-0.8); Monocytes % (Auto) 9 % (0-12); Neutrophils # (Auto) 4.8 Thou/mm3 (1.8-7.7); Neutrophils % (Auto) 56 % (37-80); Nucleated Red Blood Cell % 0 /100 WBC (0); Platelet Count 245 Thou/mm3 (140-440); RDW Standard Deviation 42.1 fL (36.4-46.3); Red Blood Count 4.23 Miln/mm3 (4.00-5.20); White Blood Count 8.6 Thou/mm3 (3.6-11.0)
[2024-08-18] MEDS: HEPARIN SOD INJ 5000 UNIT/ML VIAL SC ×3 (05:49→21:16)
[2024-08-18 06:16] LABS: Alanine Aminotransferase 16 U/L (10-49); Albumin, Serum 3.9 gm/dL (3.5-5.0); Albumin/Globulin Ratio 1.6 (1.2-2.2); Alkaline Phosphatase 80 U/L (46-116); Anion Gap 7 (7-16); Aspartate Amino Transferase 14 U/L (0-34); BUN/Creatinine Ratio 16 Ratio (12-20); Bilirubin,Total 1.1 mg/dL (0.3-1.2); Blood Urea Nitrogen 11 mg/dL (9-23); Calcium 8.4 mg/dL (8.3-10.6); Calcium (Corrected) 8.5 mg/dL (8.5-10.1); Carbon Dioxide 23.9 mMol/L (20.0-31.0); Cardiac Risk Estimate 3.7 RATIO (3.7-5.6); Chloride 110 mMol/L (98-107); Cholesterol 128 mg/dL (132-200); Creatinine (Component) 0.7 mg/dL (0.6-1.3); Globulin 2.5 gm/dL (2.3-3.5); Glucose 100 mg/dL (74-106); HDL Cholesterol 35 mg/dL (40-60); LDL Cholesterol,Calculated 80 mg/dL (0-130); Osmolality,Calculated 280 (275-295); Phosphorous 4.3 mg/dL (2.4-5.1); Potassium 3.8 mMol/L (3.4-5.1); Sodium 141 mMol/L (136-145); Thyroid Stimulating Hormone 3.44 uIU/mL (0.55-4.78); Total Protein 6.4 gm/dL (5.7-8.2); Triglycerides 67 mg/dL (30-150); eGFR > 60 See Note
[2024-08-18 06:17] LABS: Glucose Estimated Average 105 mg/dL (80-131); Hemoglobin A1C 5.3 % Hgb (4.8-6.0)
[2024-08-18] MEDS: CLOPIDOGREL BISULFATE 75 MG TABLET PO (09:20)
[2024-08-18] MEDS: ASPIRIN EC 81 MG TABEC PO (09:20)
--- NOTE | 2024-08-18 10:56 | ESPR_ITS ---
Documentation for date of: 08/18/24 Subjective Subjective Interval history: Patient Algerian-speaking and interaction facilitated by registered healthcare painter helper sign. Patient was seen and examined at bedside this AM. No acute exents overnight. Patient tolerating diet, adequate urine output and mentation is at baseline. Patient endorses improvement of weakness. MRI brain negative for any acute findings. Pending neurology recommendation Exam Vital Signs Temp Pulse Resp BP Pulse Ox O2 Del Method 97.8 F 72 18 127/85 H 97 Room Air 08/18/24 09:12 08/18/24 09:12 08/18/24 09:12 08/18/24 09:12 08/18/24 09:12 08/18/24 09:12 Narrative Exam Constitutional Alert, oriented x 3 and comfortable HEENT Vision grossly intact. Patent nares. Trachea midline Respiratory Chest normal on inspection and clear auscultation bilaterally Cardiovascular S1 and S2 audible, RRR. No murmurs carotid bruit. No gross JVD. Abdominal Soft and non tender to palpation in all quadrants. BS + Genitourinary No bladder tenderness, no flank pain. Normal to palpation Musculoskeletal Extremities tone within normal limits. No LE edema. Skin Warm, dry and intact. No apparent lesions. Psychiatric Patient has good affect, is cooperative Neurological CN II - XII grossly intact. Extremity motor and sensation grossly intact. 1A: Level of Consciousness -alert +0 1B: Ask Month and Age -answered both correctly +0 1C: Blink Eyes & Squeeze Hands - Performs Both Tasks + 0 2: Test Horizontal Extraocular Movements - Normal + 0 3: Test Visual [place] - Complete Hemianopia + 2 4: Test Facial Palsy (Use Grimace if Obtunded) -normal +0 5A: Test Left Arm Motor Drift - No Drift for 10 Seconds + 0 5B: Test Right Arm Motor Drift - No Drift for 10 Seconds + 0 6A: Test Left Leg Motor Drift - No Drift for 5 Seconds + 0 6B: Test Right Leg Motor Drift - No Drift for 5 Seconds + 0 7: Test Limb Ataxia (FNF/Heel-Bedoya) - No Ataxia + 0 8: Test Sensation - Normal; No sensory loss + 0 9: Test Language/Aphasia -normal speech + 0 10: Test Dysarthria - Normal + 0 11: Test Extinction/Inattention - No abnormality + 0 NIHSS Score: 0 Objective Labs 08/18/24 05:09 08/18/24 05:09 Labs: Laboratory Results - last 24 hr 08/17/24 08/17/24 08/17/24 16:32 17:42 19:02 WBC 9.7 RBC 4.64 Hgb 14.2 Hct 41.0 MCV 88 MCH 30.6 MCHC 34.6 RDW Std Deviation 40.9 Plt Count 287 Neut % (Auto) 72 Lymph % (Auto) 20 [place] % (Auto) 7 Eos % (Auto) 0 Baso % (Auto) 1 Neut # (Auto) 7.0 Lymph # (Auto) 1.9 [place] # (Auto) 0.7 Eos # (Auto) 0.0 Baso # (Auto) 0.1 Immature Gran # (Auto) 0.04 H Absolute Nucleated RBC 0.00 Immature Gran % 0 Nucleated RBC % 0 PT 11.7 INR 1.1 APTT 25.6 Sodium 140 Potassium 3.6 Chloride 104 Carbon Dioxide 25.9 Anion Gap 10 BUN 9 Creatinine 0.8 Estim Creat Clear Calc Not Performed. eGFR > 60 BUN/Creatinine Ratio 11 L Glucose [address] Glu mg/dL Hemoglobin A1c Calculated Osmolality 279 Calcium 9.2 Corrected Calcium 9.2 Phosphorus Magnesium 1.9 Total Bilirubin 0.9 AST 18 ALT 20 Alkaline Phosphatase 98 Troponin I < 0.020 < 0.020 Total Protein 7.8 Albumin 4.7 Globulin 3.1 Albumin/Globulin Ratio 1.5 Triglycerides Cholesterol LDL Cholesterol, Calc HDL Cholesterol Cholesterol/HDL Ratio TSH Ur Collection Type Catheter Urine Color Lt-Yellow Urine Clarity Clear Urine pH 7.0 Ur Specific [place] 1.046 H Urine Protein Negative Urine Glucose (UA) Negative Urine Ketones Negative Urine Blood Negative Urine Nitrite Negative Urine Bilirubin Negative Urine Urobilinogen (Auto) Negative Ur Leukocyte Esterase Positive Urine RBC 0 Urine WBC 11 H Ur Squamous Epith Cells 2 Urine Bacteria Rare Urine Opiates Screen Negative Urine Fentanyl Screen Negative Ur Barbiturates Screen Negative U Amphetamin/Meth Scrn Negative U Benzodiazepines Scrn Negative U Cocaine Metab Screen Negative U Marijuana (THC) Screen Negative Ethyl Alcohol < 3.0 08/18/24 05:09 WBC 8.6 RBC 4.23 Hgb 13.1 Hct 37.9 MCV 90 MCH 31.0 MCHC 34.6 RDW Std Deviation 42.1 Plt Count 245 D Neut % (Auto) 56 Lymph % (Auto) 32 [place] % (Auto) 9 Eos % (Auto) 2 Baso % (Auto) 0 Neut # (Auto) 4.8 Lymph # (Auto) 2.8 [place] # (Auto) 0.8 Eos # (Auto) 0.2 Baso # (Auto) 0.0 Immature Gran # (Auto) 0.02 H Absolute Nucleated RBC 0.00 Immature Gran % 0 Nucleated RBC % 0 PT INR APTT Sodium 141 Potassium 3.8 Chloride 110 H Carbon Dioxide 23.9 Anion Gap 7 BUN 11 Creatinine 0.7 Estim Creat Clear Calc Not Performed. eGFR > 60 BUN/Creatinine Ratio [address] Glu mg/dL 105 Hemoglobin A1c 5.3 Calculated Osmolality 280 Calcium 8.4 Corrected Calcium 8.5 Phosphorus 4.3 Magnesium 2.0 Total Bilirubin 1.1 AST 14 ALT 16 Alkaline Phosphatase 80 Troponin I Total Protein 6.4 Albumin 3.9 D Globulin 2.5 Albumin/Globulin Ratio 1.6 Triglycerides 67 Cholesterol 128 L LDL Cholesterol, Calc 80 HDL Cholesterol 35 L Cholesterol/HDL Ratio 3.7 TSH 3.44 Ur Collection Type Urine Color Urine Clarity Urine pH Ur Specific [place] Urine Protein Urine Glucose (UA) Urine Ketones Urine Blood Urine Nitrite Urine Bilirubin Urine Urobilinogen (Auto) Ur Leukocyte Esterase Urine RBC Urine WBC Ur Squamous Epith Cells Urine Bacteria Urine Opiates Screen Urine Fentanyl Screen Ur Barbiturates Screen U Amphetamin/Meth Scrn U Benzodiazepines Scrn U Cocaine Metab Screen U Marijuana (THC) Screen Ethyl Alcohol Quality Measures Quality Measures stroke Suspected type of Stroke: Non Acute Last known well (date): 08/17/24 Last known well (time): 15:00 Tenecteplase given: Reason(s) Tenecteplase not given: Stroke severity too mild (non-disabling) not given Rehab services: PT evaluation ordered VTE Prophylaxis: pharmaceutical Antithrombotic by day 2:: ordered Statin ordered: not ordered Anticoagulation ordered for A-fib or flutter (current or hx): not indicated Assessment & Plan Assessment Current Active Medications: Generic Name Dose Route Start Last Admin Trade Name Freq PRN Reason Stop Dose Admin Acetaminophen 650 mg 08/17/24 18:44 Acetaminophen 325 Mg Tablet PO 09/16/24 18:43 Q6H PRN Fever >101.5 Acetaminophen 650 mg 08/17/24 18:44 Acetaminophen 325 Mg Tablet PO 09/16/24 18:43 Q6H PRN PAIN SCALE 1-3 (mild Aspirin 81 mg 08/18/24 09:00 08/18/24 09:20 Aspirin Ec 81 Mg Tabec PO 09/17/24 08:59 81 mg QDAY ADAM Administration Clopidogrel Bisulfate 75 mg 08/18/24 09:00 08/18/24 09:20 Clopidogrel Bisulfate 75 Mg Tablet PO 09/17/24 08:59 75 mg QDAY ADAM Administration Heparin Sodium (Porcine) 5,000 unit 08/17/24 22:00 08/18/24 05:49 Heparin Sod Inj 5000 Unit/Ml Vial SC 08/31/24 21:59 5,000 unit Q8HR ADAM Administration Sodium Chloride 1,000 mls @ 100 mls/hr 08/17/24 16:45 08/18/24 03:57 Ns IV 09/16/24 16:44 100 mls/hr Q10H ADAM Administration Ondansetron HCl 4 mg 08/17/24 16:39 08/17/24 17:49 Ondansetron Inj 2 Mg/Ml Inj 2 Ml IV 09/16/24 16:38 4 mg Q4HR PRN Administration NAUSEA OR VOMITING Plan Patient is a 34 years old female without known past medical history who presented to the ED with complaint of right-sided numbness, weakness and headache. Stroke alert was called in the ED. Patient admitted for stroke workup #Headache?resolving #Right-sided weakness?resolved #Stroke rule out DDx: Complicated migraine, TIA, GBS Patient complained of weakness and numbness on right side, she also complained of numbness and tingling around her lips tPA was not given, last well-known 9 AM, NIHSS score of [address] negative for acute hemorrhage, mass effect or midline shift CTA head/neck negative for significant neck arterial stenosis or cerebral arterial arteries and no thrombus MRI brain showed no significant findings Lipid panel showed triglycerides 67, cholesterol 128, HDL 35, LDL 80 HbA1c 5.3% TSH 3.44 Plan: - Patient is started on stroke protocol - Neuro checks q 4H - Head of bed elevated to 30 degrees - PT/OT referrals placed - Seizure precautions in place - Allow permissive HTN. Antihypertensives if BP >220/120, with a goal of reduction in BP during the first 24 hours - ECHO with bubble study ordered - PRN Acetaminophen 650mg to avoid hyperthermia - PRN Labetaol 10 mg IV Q10 mins for SBP > 220 - DVT Prophylaxis with Heparin 5000 U SC BID -Continue DAPT with aspirin and Plavix - Dr Zabala consulted, pending in-house Neurology recommendations Health maintenance: Disposition: Pending neurology recommendations Diet: Cardiac Lines: pIVs GI Prophylaxis: None Thrombo Prophylaxis: Heparin Code status: FULL CODE plan of care discussed with Attending Dr. Natividad Huerta MD PGY 1 Disclaimer: This note was dictated by speech recognition. Minor errors in dental insurance coordinator may be present due to voice recognition software. Attending Provider Attestation/Addendum I attest that I was physically present for the evaluation, physical examination, lab and imaging review of the patient with the residents. I discussed the case with the residents and agree with the findings and plans of care as documented above. Esther Henson MD
--- NOTE | 2024-08-18 21:41 | PD.VPROG1 ---
Telemedicine visit statement This visit was conducted with the use of virtual visit was obtained on 08/18/24. Documentation for date of: 08/18/24 Subjective Subjective Interval history: Patient was seen in telemetry today. No new symptoms reported. Her paresthesias have resolved. Virtual exam Vital Signs Temp Pulse Resp BP Pulse Ox O2 Del Method 97.4 F 63 16 91/55 L 97 Room Air 08/18/24 16:04 08/18/24 16:04 08/18/24 16:04 08/18/24 16:04 08/18/24 16:04 08/18/24 16:04 Objective Labs 08/19/24 04:44 08/19/24 04:44 Labs: Laboratory Results - last 24 hr 08/18/24 05:09 WBC 8.6 RBC 4.23 Hgb 13.1 Hct 37.9 MCV 90 MCH 31.0 MCHC 34.6 RDW Std Deviation 42.1 Plt Count 245 D Neut % (Auto) 56 Lymph % (Auto) 32 [place] % (Auto) 9 Eos % (Auto) 2 Baso % (Auto) 0 Neut # (Auto) 4.8 Lymph # (Auto) 2.8 [place] # (Auto) 0.8 Eos # (Auto) 0.2 Baso # (Auto) 0.0 Immature Gran # (Auto) 0.02 H Absolute Nucleated RBC 0.00 Immature Gran % 0 Nucleated RBC % 0 Sodium 141 Potassium 3.8 Chloride 110 H Carbon Dioxide 23.9 Anion Gap 7 BUN 11 Creatinine 0.7 Estim Creat Clear Calc Not Performed. eGFR > 60 BUN/Creatinine Ratio [address] Glu mg/dL 105 Hemoglobin A1c 5.3 Calculated Osmolality 280 Calcium 8.4 Corrected Calcium 8.5 Phosphorus 4.3 Magnesium 2.0 Total Bilirubin 1.1 AST 14 ALT 16 Alkaline Phosphatase 80 Total Protein 6.4 Albumin 3.9 D Globulin 2.5 Albumin/Globulin Ratio 1.6 Triglycerides 67 Cholesterol 128 L LDL Cholesterol, Calc 80 HDL Cholesterol 35 L Cholesterol/HDL Ratio 3.7 TSH 3.44 Assessment & Plan Problem List (1) Paresthesia: Status: Acute Assessment and plan: Patient does not have any more paresthesias. Stable from neurology standpoint for discharge home. Reassurance given to the patient regarding the negative workup including MRI brain. Follow-up with me in my office upon referral from primary care if the paresthesias persist or returns.
[2024-08-19] VITALS: BP 95/66; PULSE 56; PULSE 69; RESP 18; TEMP 36.1; O2SAT 97
[2024-08-19] MEDS: SODIUM CHLORIDE 0.9% 1000 ML 1,000 ML 100 ML IV (02:02)
[2024-08-19 04:00] VITALS: BP 90/69; PULSE 54; PULSE 58; RESP 18; TEMP 36.1; O2SAT 96
[2024-08-19 06:14] LABS: Basophils % (Auto) 1 % (0-2.5); Eosinophils # (Auto) 0.3 Thou/mm3 (0.0-0.5); Eosinophils % (Auto) 3 % (0-10); Hemoglobin 12.7 g/dL (12.0-16.0); Immature Granulocytes % (Auto) 0 % (0-0); Immature Granulocytes Auto 0.03 Thou/mm3 (0.00-0.00); Lymphocytes # (Auto) 3.1 Thou/mm3 (1.0-4.8); Lymphocytes % (Auto) 38 % (10-50); Mean Corpuscular HGB Conc 34.3 g/dl (31.0-37.0); Mean Corpuscular Hemoglobin 31.1 pg (25.0-35.0); Mean Corpuscular Volume 91 fL (80-100); Monocytes # (Auto) 0.6 Thou/mm3 (0.0-0.8); Monocytes % (Auto) 8 % (0-12); Neutrophils # (Auto) 4.1 Thou/mm3 (1.8-7.7); Neutrophils % (Auto) 50 % (37-80); Nucleated Red Blood Cell % 0 /100 WBC (0); Platelet Count 223 Thou/mm3 (140-440); RDW Standard Deviation 42.2 fL (36.4-46.3); Red Blood Count 4.08 Miln/mm3 (4.00-5.20); White Blood Count 8.1 Thou/mm3 (3.6-11.0)
[2024-08-19 06:38] LABS: Alanine Aminotransferase 13 U/L (10-49); Albumin, Serum 3.8 gm/dL (3.5-5.0); Albumin/Globulin Ratio 1.5 (1.2-2.2); Alkaline Phosphatase 81 U/L (46-116); Anion Gap 9 (7-16); Aspartate Amino Transferase 12 U/L (0-34); BUN/Creatinine Ratio 18 Ratio (12-20); Bilirubin,Total 0.6 mg/dL (0.3-1.2); Blood Urea Nitrogen 11 mg/dL (9-23); Calcium 8.1 mg/dL (8.3-10.6); Calcium (Corrected) 8.3 mg/dL (8.5-10.1); Carbon Dioxide 23.4 mMol/L (20.0-31.0); Chloride 108 mMol/L (98-107); Creatinine (Component) 0.6 mg/dL (0.6-1.3); Globulin 2.5 gm/dL (2.3-3.5); Glucose 101 mg/dL (74-106); Osmolality,Calculated 278 (275-295); Potassium 3.7 mMol/L (3.4-5.1); Sodium 140 mMol/L (136-145); Total Protein 6.3 gm/dL (5.7-8.2); eGFR > 60 See Note
[2024-08-19 08:00] VITALS: BP 110/66; PULSE 57; PULSE 63; RESP 18; TEMP 35.9; O2SAT 98
[2024-08-19] MEDS: ASPIRIN EC 81 MG TABEC PO (09:26)
[2024-08-19] MEDS: CLOPIDOGREL BISULFATE 75 MG TABLET PO (09:27)
[2024-08-19 12:00] VITALS: BP 112/74; PULSE 68; RESP 17; TEMP 36.7; O2SAT 98
--- NOTE | 2024-08-19 13:22 | PC.SS ---
Navya Tomas is 34 year old female admitted to [facility] for limb numbness. SS conducted bedside contact with the patient to complete initial assessment and to discuss discharge planning.? SW used all precautionary measures to complete initial. Role and reason for the contact was explained to Navya. Pt is alert and oriented times 4. Pt gave verbal authorization for Rik Hawkins, spouse to be present while assessment was conducted. Lucretia Stephensonredrying machine operator #[id number] assisted Patient confirmed demographic information. Patient identifies Rik Hawkins, spouse, as her surrogate decision maker. Pt states prior to hospitalization she is able to complete ADL?s Pt does not use DME nor O2. Pt confirmed no history of mental health or substance abuse. Pt confirmed no diabetes nor dialysis. Pts PCP is [facility]. Pharmacy of choice is [facility] on [address]. SS provided information on [facility], pt not receptive. Discharge options discussed and the pt return home with family. Family will provide transportation upon DC. No further intervention required at this time, social research assistant would be available to address any further concerns. DC Plan: Home Contact: Rik Hawkins, spouse, Address: Confirmed on face sheet PCP: [facility]
--- NOTE | 2024-08-19 13:29 | ESDS_ITS ---
Planned Discharge Date 08/19/24 DS: Providers Provider Date of admission: 08/17/24 18:10 Primary care physician: Physician No Primary/Family Admitting Provider: Esther Henson MD Attending Provider on Admission: Esther Henson MD Consults: 08/17/24 16:40 Consult to Neurology / Tele-Neurology Routine Comment: Consulting Provider: [facility] 08/17/24 18:48 Consult to Neurology / Tele-Neurology Routine Comment: Rule out CVA Consulting Provider: Holland Zabala 08/17/24 20:06 Referral Physical Therapy Routine Comment: Physician Instructions: Referral Speech Therapy Routine Comment: Attending Provider on DC: Agatha oRck MD Discharging Provider: Agatha Rock MD DS: Diagnosis Problem List Completed Was Problem List Reviewed/Reconciled?: Yes Hospital Course Hospital Course Hospital course: A 34-year-old female patient with no past medical history presented to the ED due to right-sided weakness and numbness. At the presentation patient was found to have NIH SS score of 2 she also complained of bilateral numbness. Patient was admitted for stroke workup in which CT scan was ordered and was negative for any hemorrhage or mass effect, head CTA was also negative for any pathology at this time. MRI was negative for any infarct or demyelinating disorder. Consultation to in-house neurologist recommended to discharge the patient and follow-up in outpatient settings as the patient has lower extremity numbness that need to be addressed in outpatient settings. Patient deemed to be clinically stable for discharge and was given the following instructions: Follow up with the neurologist Dr Zabala in o/p settings within 2 weeks from discharge for your lower extremity tinglings Follow up with your PCP within one week from discharge In case of recurrence of your symptoms please return to the ED as soon as possib Discharge diagnosis #Stroke ruled out #Peripheral neuropathy for further evaluation Time Spent with Patient Time attestation: Total time spent providing and/or coordinating discharge services: Time spent: Less than 30 minutes Exam Vital Signs Temp Pulse Resp BP Pulse Ox O2 Del Method 98.0 F 68 17 112/74 98 Room Air 08/19/24 12:00 08/19/24 12:00 08/19/24 12:00 08/19/24 12:00 08/19/24 12:00 08/19/24 12:00 Narrative Exam GEN: AOx3, able to speak full sentences HEENT: NC/AC, PERRLA, oral mucosa moist, neck supple CVS: RRR, S1-S2 present, no murmurs appreciated RESP: CTAB GI: soft,non distended, non tender, NBS MSK: able to move all 4 limbs, no lower extremity edema SKIN: warm and dry DELIVERY TABLE FEEDER: CN II-XII and Sensation grossly intact. Discharge Plan Plan Patient Disposition: HOME (Self Care) Patient condition on transfer: Stable Care Plan Goals: Follow up with the neurologist Dr Zabala in o/p settings within 2 weeks from discharge for your lower extremity tinglings Follow up with your PCP within one week from discharge In case of recurrence of your symptoms please return to the ED as soon as possib James un seguimiento con el neur?logo Dr. Blood [phone] dentro de las 2 semanas posteriores al sharri por el hormigueo en las extremidades inferiores. James un seguimiento con garcia m?dico de cabecera dentro de la semana posterior al sharri. En sigifredo de recurrencia de los s?ntomas, regrese a urgencias lo antes posible. Prescriptions/Referrals Referrals: No Primary/Family,Physician [Primary Care Provider] - Patient/Caregiver Discharge Instructions Discharge Activity: activity as tolerated Education Materials: ED Pain, Acute, Uncertain Cause, ED Paraesthesias Print Language: Yakut Stand Alone Forms: [employer] Award Info., Patient Portal Info Letter Discharge Order Discharge Orders: Discharge (Routine); Ordered 08/19/24 Ordered By: Agatha Rock Quality Discharge Quality Measures VTE prophylaxis and stroke Statin ordered >75 y/o:moderate or high intensity dose on DC: n/a Statin ordered <75 y/o: high intensity dose on DC: n/a Statin not ordered due to:: LDL < or = 70 Anticoagulation ordered for A-fib or flutter (current or hx): not indicated Antithrombotic ordered on DC: not indicated (describe) Attestestation MD Attestation I attest that I was physically present for the evaluation, physical examination, lab and imaging review of the patient with the residents. I discussed the case with the residents and agree with the findings and plans of care as documented above. Esther Henson MD
== END 2024-08-19 12:22 | disposition home or self-care (01) | DRG 48 ==
LOC: SERX 17:41 → SERHOLD 18:19 → S2NX 08-18 17:16
PROVIDERS: Admitting Provider Student in an Organized Health Care Education/Training Program; Emergency Provider Family Medicine; Visit Provider Student in an Organized Health Care Education/Training Program
DX: G62.9 Polyneuropathy, unspecified (principal)
CPT/HCPCS: 36415; 70450; 70496; 70498; 70551; 80053; 80061; 80307; 80320; 81001; 83036; 83735; 84100; 84443; 84484; 85025; 85610; 85730; 87086; 92610; 93005; 96360; 96361; 99285; A4649; J1644; J2405; J7030; Q9967; A9270; G0480

== ENCOUNTER 2024-11-10 11:07 | Emergency (ER) | payer MEDICAID, SELFPAY ==
[2024-11-10 11:22] VITALS: BMI 27.6
[2024-11-10 11:23] VITALS: BP 118/78; PULSE 85; RESP 18; TEMP 36.7; O2SAT 99
--- NOTE | 2024-11-10 11:27 | EDNOTE_ITS ---
ED OB Contraction Preg RMI/HPI General Chief complaint: Vaginal Bleeding Stated complaint: NEW W/BLEEDING Time Seen by Provider: 11/10/24 11:13 Arrival date/time: 11/10/24 11:07 34-year-old female presents the emergency department for complaints of vaginal bleeding patient reports she went to the clinic on Tuesday and found out that he is she believes she is approximately 6 weeks patient reports being 5 para 3 A1 Limitations: no limitations Related Data Allergies Allergy/AdvReac Type Severity Reaction Status Date / Time No Known Allergies Allergy Verified 11/10/24 11:09 Review of Systems Review of Systems Systems Reviewed: All systems reviewed, normal except as documented Constitutional Constitutional: Reports system reviewed and no additional complaints, except as documented, Denies fever(s) and Denies headache(s) Eyes Eyes: Reports system reviewed and no additional complaints, except as documented and Denies blurry vision ENT Ears, Nose, Mouth, and Throat: Reports system reviewed and no additional complaints, except as documented, Denies headache(s), Denies nasal congestion and Denies nasal discharge Cardiovascular Cardiovascular: Reports system reviewed and no additional complaints, except as documented, Denies chest pain and Denies dyspnea Respiratory Respiratory: Reports system reviewed and no additional complaints, except as documented, Denies chest congestion, Denies cough and Denies dyspnea Gastrointestinal Gastrointestinal: Reports system reviewed and no additional complaints, except as documented and Denies abdominal pain Genitourinary Genitourinary: Reports system reviewed and no additional complaints, except as documented and Reports abnormal vaginal bleeding Integumentary/Breasts Skin/Breast: Reports system reviewed and no additional complaints, except as documented and Denies rash Neurologic Neurologic: Reports system reviewed and no additional complaints, except as documented, Reports as per HPI and Denies headache(s) Past Medical History Past Medical History NEUROLOGIC: Negative Neurological Disorders, Seizures or Epilepsy CARDIAC: Negative Cardiac Disorders or Congestive Heart Failure RESPIRATORY: Negative Chronic Obstructive Pulmonary Disease (COPD) GASTROINTESTINAL: Negative Gastrointestinal Disorders, Hepatitis or Colorectal Cancer GENITOURINARY: Negative Genitourinary Disorders, Renal Disease or Prostate Cancer REPRODUCTIVE: Positive Previous Pregnancies; Negative Breast Cancer or Testicular Cancer MUSCULOSKELETAL: Negative Musculoskeletal Disorders or Bone Cancer ENDOCRINE: Negative Endocrine Disorders, Diabetes Mellitus Type 1 or Diabetes Mellitus Type 2 HEMATOLOGIC: Negative Blood Disorders or Anemia PSYCHO/SOCIAL: Negative Depression or Anxiety OTHER HISTORY: Positive Blood Transfusions and Measles; Negative Hospitalization, Autoimmune Disease, Shingles, Blood Transfusion Reaction, Anesthesia Reactions, MRSA, VRSA, Vancomycin-Resistant Enterococci, Human Immunodeficiency Virus (HIV), Chicken Pox, Mumps, Rubella ([place] Measles), Pertussis, Clostridium Difficile, Cancer, Breast Cancer, Cervical Cancer, Colorectal Cancer, Lung Cancer, Ovarian Cancer, Prostate Cancer or Testicular Cancer Family History FAMILY HISTORY: Positive Family Surgery; Negative Family Psychiatric Problems, Family Respiratory Disorders, Family Cardiac Disorders, Family Gastrointestinal Problems, Family Cancer or Family Anesthesia Reaction Surgical History SURGICAL: Negative Endocrine Surgery, Ear Surgery or Abdominal Surgery Social History SMOKING STATUS: Never smoker SECOND HAND EXPOSURE: No ED Exam General Limitations: Present no limitations General appearance: Present alert and in no apparent distress Head Head exam: Present atraumatic, normocephalic and normal inspection Eye Eye exam: Present normal appearance, PERRL and EOMI; Absent conjunctival injection ENT ENT exam: Present normal exam, normal oropharynx and mucous membranes moist Neck Neck exam: Present normal inspection, full ROM and trachea midline Chest Chest inspection: Present normal inspection and symmetric chest wall rise Respiratory Respiratory exam: Present normal lung sounds bilaterally; Absent respiratory distress Cardiovascular Cardiovascular exam: Present regular rate, normal rhythm and normal heart sounds Abdominal Exam Abdominal exam: Present soft and normal bowel sounds; Absent distention, tenderness, guarding, rebound or rigidity Extremities Exam Extremities exam: Present normal inspection and full ROM Back Exam Back exam: Present normal inspection and full ROM Neurological Exam Neurological exam: Present alert, oriented X3 and CN II-XII intact Psychiatric Psychiatric exam: Present normal affect and normal mood Skin Skin exam: Present warm, dry, intact and normal color Course Quality Measures none Orders Category Date Time Status US OB transvaginal Stat Exams 11/10/24 11:29 Completed Beta HCG,Quantitative Stat Lab 11/10/24 12:00 Completed CBC Stat Lab 11/10/24 12:00 Completed Comprehensive Metabolic Panel Stat Lab 11/10/24 12:00 Completed Vital Signs Vital signs: Vital Signs Temperature 98.1 F 11/10/24 11:23 Pulse Rate 85 11/10/24 11:23 Respiratory Rate 18 11/10/24 11:23 Blood Pressure 118/78 11/10/24 11:23 Pulse Oximetry (%) 99 11/10/24 11:23 Oxygen Delivery Method Room Air 11/10/24 11:23 o2 sat 99% r.a wnl Vaginal Bleeding MDM Narrative MDM Narrative: 34-year-old female presents the emergency department for complaints of vaginal bleeding patient reports she went to the clinic on Tuesday and found out that he is she believes she is approximately 6 weeks patient reports being 5 para 3 A1 On exam patient well-appearing patient does not appear ill or toxic no acute distress Lab work and imaging obtained Patient struck to follow-up with [facility] for worsening symptoms return immediately Patient data External records reviewed:: [facility] previous records Clinical information provided by:: patient Social determinants that could affect healthcare access:: none Patient has the following chronic illnesses:: none How is presenting disease/condition affected by chronic disease/condition?: no chronic disease Evaluation data The following diagnostics were reviewed and interpreted by me:: lab results and radiology exam(s) Lab and/or radiology exams considered but not ordered:: Labs radiology obtained Interpretation Summary: Reviewed by me Medications / Prescriptions Medications or Prescriptions considered but not ordered:: No meds Medication administrations:: No meds Consultations Consultation(s) initiated? (list below): No Diagnosis Vaginal Bleeding Differential Diagnosis: missed and threatened Most likely diagnosis given after review of the tests above:: Threatened Admission Indicated Admission indicated?: not indicated Admission Request Was there a request for admission?: No Disposition Plan Disposition Plan: Discharge Discharge Attestation Discharge Attestation: The patient and all family members were given an opportunity to ask questions and understood the discharge instructions. Discharge instructions specifically effects, indications for sooner follow up or return to the emergency department, and the expected course of current diagnosis. Patient condition: Stable Discharge Plan Plan Patient Disposition: HOME (Self Care) Discharge Disposition comment: Stable Prescriptions/Referrals Referrals: Marv Felix MD [Primary Care Provider] - 11/13/24 Problem List Clinical Impression: , threatened Patient/Caregiver Discharge Instructions Education Materials: Understanding Miscarriage ... Additional Instructions: Please have lab work repeated in 2 to 3 days for worsening symptoms or concerns return immediately Print Language: [place] Stand Alone Forms: Yaz Award Info., Patient Portal Info Letter PA/GERALDO Supervising Physician PA/GERALDO Supervising Physician: Dr. friedman
--- NOTE | 2024-11-10 11:29 | XR_ITS ---
Examination: OB Transvaginal ultrasound of the pelvis, complete Technique: Transvaginal sonographic images pelvis performed using dykes scale imaging Exam date and time: November 10, 2024, 1138 hours INDICATIONS: Vaginal bleeding beginning 5 days ago FINDINGS: Uterus 9.4 cm endometrial stripe 0.3 cm No uterine mass or intrauterine gestation Right ovary 3.3 cm arterial flow Left ovary 2.3 cm arterial flow No fluid in the cul-de-sac IMPRESSION: No uterine mass or intrauterine gestation.
[2024-11-10 12:21] LABS: Basophils # (Auto) 0.1 Thou/mm3 (0.0-0.2); Basophils % (Auto) 1 % (0-2.5); Eosinophils # (Auto) 0.3 Thou/mm3 (0.0-0.5); Eosinophils % (Auto) 4 % (0-10); Hematocrit 40.5 % (36.0-46.0); Hemoglobin 13.9 g/dL (12.0-16.0); Immature Granulocytes Auto 0.03 Thou/mm3 (0.00-0.00); Lymphocytes # (Auto) 2.0 Thou/mm3 (1.0-4.8); Lymphocytes % (Auto) 24 % (10-50); Mean Corpuscular HGB Conc 34.3 g/dl (31.0-37.0); Mean Corpuscular Hemoglobin 31.1 pg (25.0-35.0); Mean Corpuscular Volume 91 fL (80-100); Monocytes # (Auto) 0.7 Thou/mm3 (0.0-0.8); Monocytes % (Auto) 8 % (0-12); Neutrophils # (Auto) 5.5 Thou/mm3 (1.8-7.7); Neutrophils % (Auto) 64 % (37-80); Nucleated Red Blood Cell # 0.00 Thou/mm3 (0.00-0.00); Nucleated Red Blood Cell % 0 /100 WBC (0); Platelet Count 268 Thou/mm3 (140-440); RDW Standard Deviation 41.1 fL (36.4-46.3); Red Blood Count 4.47 Miln/mm3 (4.00-5.20); White Blood Count 8.6 Thou/mm3 (3.6-11.0)
[2024-11-10 13:09] LABS: Alanine Aminotransferase 35 U/L (10-49); Albumin, Serum 4.5 gm/dL (3.5-5.0); Albumin/Globulin Ratio 1.7 (1.2-2.2); Alkaline Phosphatase 87 U/L (46-116); Anion Gap 9 (7-16); Aspartate Amino Transferase 20 U/L (0-34); BUN/Creatinine Ratio 16 Ratio (12-20); Beta HCG,Quantitative 449 mIU/mL (<5.0); Bilirubin,Total 0.6 mg/dL (0.3-1.2); Blood Urea Nitrogen 11 mg/dL (9-23); Calcium 9.1 mg/dL (8.3-10.6); Calcium (Corrected) 9.1 mg/dL (8.5-10.1); Carbon Dioxide 25.0 mMol/L (20.0-31.0); Chloride 106 mMol/L (98-107); Creatinine (Component) 0.7 mg/dL (0.6-1.3); Estimated Creatinine Clearance 122.1 mL/min (>60); Globulin 2.6 gm/dL (2.3-3.5); Glucose 103 mg/dL (74-106); Osmolality,Calculated 278 (275-295); Potassium 4.2 mMol/L (3.4-5.1); Sodium 140 mMol/L (136-145); Total Protein 7.1 gm/dL (5.7-8.2); eGFR > 60 See Note
== END 2024-11-10 14:20 | disposition home or self-care (01) ==
PROVIDERS: Nurse Practitioner Primary Care; Emergency Provider Family Medicine; PCP Family Medicine
DX: O20.0 Threatened abortion (principal); Z3A.01 Less than 8 weeks gestation of pregnancy
CPT/HCPCS: 36415; 76817; 80053; 84702; 85025; 99283